=== PATIENT | female | born 1995 | race Caucasian/White ===

== ENCOUNTER 2022-05-08 22:06 | Emergency (ER) | payer MEDICAID ==
[~2022-05-08] VITALS: Ht 160 cm; Wt 96.7 kg
[2022-05-08 23:31] VITALS: BP 128/80
[2022-05-09] MEDS ORDERED: OFLO5DRO4 LEFT EAR (01:36)
== END 2022-05-09 02:08 | disposition home or self-care (01) ==
LOC: ER 22:06
DX: H60.92 Unspecified otitis externa, left ear (principal)
CPT/HCPCS: 99281